=== PATIENT | male | born 1930 | race Caucasian/White ===

== ENCOUNTER 2018-09-03 20:17 | Emergency (ER) | payer MEDICARE, OTHER ==
--- NOTE | 2018-09-03 21:04 | EDM.PDOC ---
ED HPI GENERAL MEDICAL PROBLEM - General Chief Complaint: Cardiovascular Problem Stated Complaint: problems with heart rate Time Seen by Provider: 09/03/18 20:40 Source of Information: Reports: Patient, Family - History of Present Illness INITIAL COMMENTS - FREE TEXT/NARRATIVE: PT states that he was at home approximately 6:00 felt like his heart rate dropped low when he checked it it was down to 47 then a few minutes later it was up to 97 patient states that it felt like it fluttered for just a few minutes then went away patient denied any chest pain shortness breath lightheaded or dizziness says his heart rate normally runs in the 70s to 80 due to his pacemaker he denies any other signs of symptoms at this time but today after eating dinner approximately 11:30 or 12:00 stating that he overate a little too much port he did have some indigestion type pain that has lasted a few hours but is much better now Patient denies any chest pain shortness of breath lightheadedness or dizziness again says he feels fine and just wanted to get checked out he does have a history of GA back in the early 80s but had no intervention such as stents or surgery currently has a pacemaker which has never given him any trouble he has not had a stress test or a catheter since the first GA Onset: Today (No pain at this time) Worsens with: Denies: None Associated Symptoms: Reports: No Other Symptoms 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 (see below) (He took a couple of Tums for the heartburn which helped alleviate it ) - Related Data Allergies Allergy/AdvReac Type Severity Reaction Status Date / Time No Known Allergies Allergy Verified 09/03/18 20:21 Home Meds: Home Meds Atenolol 1 tab PO DAILY 09/03/18 [History] Insulin Degludec [Tresiba] 3 unit SQ BID 09/03/18 [History] Levothyroxine 125 mcg PO ACBREAKFAST 09/03/18 [History] Lisinopril 1 tab PO DAILY 09/03/18 [History] glipiZIDE [Glucotrol] 1 tab PO DAILY 09/03/18 [History] metFORMIN [Glucophage] 1,000 mg PO BIDMEALS 09/03/18 [History] Past Medical History Cardiovascular History: Reports: Hypertension, [place] Musculoskeletal History: Reports: Other (See Below) Other Musculoskeletal History: sciatica Endocrine/Metabolic History: Reports: Diabetes, Type II, Hypothyroidism - Past Surgical History Cardiovascular Surgical History: Reports: Pacer Social & Family History - Tobacco Use Smoking Status *Q: Former Smoker Used Tobacco, but Quit: Yes Month/Year Tobacco Last Used: 1983 ED ROS GENERAL - Review of Systems Review Of Systems: See Below Constitutional: Reports: No Symptoms HEENT: Reports: No Symptoms Respiratory: Reports: No Symptoms. Denies: Shortness of Breath, Wheezing, Pleuritic Chest Pain, Cough Cardiovascular: Reports: Palpitations. Denies: Chest Pain, Blood Pressure Problem, Dyspnea on Exertion, Edema, Lightheadedness Endocrine: Reports: No Symptoms GI/Abdominal: Reports: No Symptoms Musculoskeletal: Reports: No Symptoms Skin: Reports: No Symptoms Neurological: Reports: No Symptoms Hematologic/Lymphatic: Reports: No Symptoms Immunologic: Reports: No Symptoms ED EXAM, GENERAL - Physical Exam Exam: See Below Exam Limited By: No Limitations General Appearance: Alert, WD/WN, No Apparent Distress Ears: Normal External Exam Throat/Mouth: Normal Inspection, Normal Oropharynx, Normal Voice, No Airway Compromise Neck: Normal Inspection, Supple, Non-Tender, Full Range of Motion. No: Carotid Bruit Respiratory/Chest: No Respiratory Distress, Lungs Clear, Normal Breath Sounds, Chest Non-Tender Cardiovascular: Normal Peripheral Pulses, Regular Rate, Rhythm, No Edema, No Gallop, No JVD, No Murmur, No Rub. No: Bradycardia, Tachycardia GI/Abdominal: Normal Bowel Sounds, Soft, Non-Tender, No Organomegaly, No Distention Back Exam: Full Range of Motion Extremities: Normal Inspection, Normal Range of Motion, No Pedal Edema Neurological: Alert, Oriented, CN II-XII Intact, Normal Cognition, Normal Gait Psychiatric: Normal Affect, Normal Mood Skin Exam: Warm, Dry, Intact, Normal Color, No Rash EKG INTERPRETATION Rhythm: NSR (EKG has normal sinus rhythm I cannot appreciate any ST elevation or depression secondary to pacer spikes there were no reciprocal changes noted) Course - Vital Signs Last Recorded V/S: Last Vital Signs Temp 36.6 C 09/03/18 20:24 Pulse 74 09/04/18 00:08 Resp 16 09/04/18 00:08 BP 168/69 H 09/04/18 00:08 Pulse Ox 96 09/03/18 20:24 - Orders/Labs/Meds Orders: Active Orders 24 hr Category Date Time Status EKG 12 Lead [EKG Documentation Completion] [RC] STAT Care 09/03/18 20:58 Active Labs: Laboratory Tests 09/03/18 09/03/18 09/04/18 Range/Units 21:13 21:13 00:29 WBC 8.2 (4.0-10.0) x10^3/uL RBC 4.63 (4.5-6.0) x10^6/uL Hgb 13.8 L (14.0-18.0) g/dL Hct 41.7 (40.0-52.0) % MCV 90.1 (78.0-93.0) fL MCH 29.8 (26.0-32.0) pg MCHC 33.1 (32.0-36.0) g/dL RDW Coeff of Sergio 12.9 (10.0-15.0) % Plt Count 237 (130-400) x10^3/uL Sodium 144 (136-145) mmol/L Potassium 5.0 (3.5-5.1) mmol/L Chloride 107 (98-107) mmol/L Carbon Dioxide 24 (21-32) mmol/L Anion Gap 18.0 (10-20) mmol/L BUN 29 H (7-18) mg/dL Creatinine 1.7 H (0.70-1.30) mg/dL Est Cr Clr Drug Dosing 29.62 mL/min Estimated GFR (MDRD) 38 Glucose 197 H (74-106) mg/dL Calcium 9.2 (8.5-10.1) mg/dL Troponin I 0.018 < 0.017 (<=0.056) ng/mL - Re-Assessments/Exams Free Text/Narrative Re-Assessment/Exam: 09/03/18 21:05 EKG was faxed to [facility] for an over read but I could not appreciate any ST elevation or depression or reciprocal changes it was sent secondary to the acute GA reading at the top 09/03/18 21:[address] WEINSTEIN cardiology at [facility]. Agrees that there is no GA ongoing on the [id number] Departure - Departure Time of Disposition: 00:45 Disposition: Home, Self-Care 01 Condition: Good Clinical Impression: Palpitations, Dizziness Instructions: Palpitations, [id number] Referrals: Radha Flaherty, [Primary Care Provider] - Forms: ED Department Discharge - Problem List & Annotations (1) Palpitations SNOMED Code(s): 87791104 Code(s): R00.2 - PALPITATIONS Status: Acute - My Orders Last 24 Hours: My Active Orders 09/03/18 20:58 EKG 12 Lead [EKG Documentation Completion] [RC] STAT - Assessment/Plan Last 24 Hours: My Active Orders 09/03/18 20:58 EKG 12 Lead [EKG Documentation Completion] [RC] STAT Patient was rechecked multiple times pain no shortness breath no other palpitations says he feels fine discussed options with patient's own drawn a 3 hour troponin which she agrees with the patient does not and refuses to be admitted or placed in observation states he will follow with his primary care provider in the next 24 hours or if anything gets worse he will return to the emergency room
== END 2018-09-04 01:02 | disposition home or self-care (01) ==
LOC: VM.ED 20:17
DX: R00.2 Palpitations (principal); R42 Dizziness and giddiness; I10 Essential (primary) hypertension; E03.9 Hypothyroidism, unspecified; I25.2 Old myocardial infarction; E11.9 Type 2 diabetes mellitus without complications; Z79.4 Long term (current) use of insulin; Z87.891 Personal history of nicotine dependence; Z79.899 Other long term (current) drug therapy
CPT/HCPCS: 36415; 80048; 84484; 85027; 93005; 93010; 99284-GF; 99285-25

== ENCOUNTER 2019-06-30 05:33 | Emergency (ER) | payer MEDICARE, OTHER ==
[2019-06-30] MEDS ORDERED: Sodium Chloride 0.9% 10 ML Syringe FLUSH PRN (05:48)
--- NOTE | 2019-06-30 06:05 | EDM.PDOC ---
ED HPI GENERAL MEDICAL PROBLEM - General Chief Complaint: Neuro Symptoms/Deficits Stated Complaint: Numbness in Cheek and Left Hand Time Seen by Provider: 06/30/19 05:45 Source of Information: Reports: Patient History Limitations: Reports: No Limitations - History of Present Illness INITIAL COMMENTS - FREE TEXT/NARRATIVE: Pt. woke this AM around 4:30 with complaints of mild L sided facial numbness and mild L sided hand numbness. He states that he has never experienced symptoms like this in the past. He states that he felt completely normal when he went to bed around 10:30 last evening. He states that he did not wake up in the night and noticed the symptoms at 4:30 when he got up for the day. He denies any speech problems. No difficulty with ambulation. Denies any weakness/ numbness to his lower extremities or torso. Pt. denies any chest pain or shortness of breath. He has a history of CAD with an MO in 1987. He has a history of complete heart block and is paced. He has a history of diastolic HF, mitral stenosis, and pulmonary HTN. Risk factors for vascular disease include type 2 IDDM, dyslipidemia, and hypertension. Onset: Today Onset Date: 06/30/19 Location: Reports: Face, Upper Extremity, Left - Related Data Allergies Allergy/AdvReac Type Severity Reaction Status Date / Time No Known Allergies Allergy Verified 06/30/19 05:41 Home Meds: Home Meds Insulin Degludec [Tresiba] 3 unit SQ BID 09/03/18 [History] Levothyroxine 125 mcg PO ACBREAKFAST 09/03/18 [History] Lisinopril 1 tab PO DAILY 09/03/18 [History] atenoloL [Atenolol] 1 tab PO DAILY 09/03/18 [History] glipiZIDE [Glucotrol] 1 tab PO DAILY 09/03/18 [History] metFORMIN [Glucophage] 1,000 mg PO BIDMEALS 09/03/18 [History] Past Medical History Cardiovascular History: Reports: Hypertension, [place] Musculoskeletal History: Reports: Other (See Below) Other Musculoskeletal History: sciatica Endocrine/Metabolic History: Reports: Diabetes, Type II, Hypothyroidism - Past Surgical History Cardiovascular Surgical History: Reports: Pacer ED ROS GENERAL - Review of Systems Review Of Systems: See Below Constitutional: Reports: No Symptoms HEENT: Reports: No Symptoms Respiratory: Reports: No Symptoms Cardiovascular: Reports: No Symptoms Endocrine: Reports: No Symptoms GI/Abdominal: Reports: No Symptoms : Reports: No Symptoms Musculoskeletal: Reports: No Symptoms Skin: Reports: No Symptoms Neurological: Reports: Numbness (L hand and face), Paresthesia. Denies: Pre- Existing Deficit, Seizure, Syncope, Trouble Speaking, Difficulty Walking, Change in Speech, Gait Disturbance Psychiatric: Reports: No Symptoms Hematologic/Lymphatic: Reports: No Symptoms Immunologic: Reports: No Symptoms ED EXAM, GENERAL - Physical Exam Exam: See Below Exam Limited By: No Limitations General Appearance: Alert, WD/WN, No Apparent Distress Eye Exam: Bilateral Eye: EOMI, Normal Fundi, Normal Inspection, PERRL Nose: Normal Inspection, Normal Mucosa, No Blood Throat/Mouth: Normal Inspection, Normal Lips, Normal Teeth, Normal Gums Head: Atraumatic, Normocephalic Neck: Normal Inspection, Supple, Non-Tender, Full Range of Motion Respiratory/Chest: No Respiratory Distress, Lungs Clear, Normal Breath Sounds, No Accessory Muscle Use, Chest Non-Tender Cardiovascular: Normal Peripheral Pulses, Regular Rate, Rhythm, No Edema, No Gallop, No JVD, No Murmur, No Rub Peripheral Pulses: 4+: Radial (L), Radial (R) GI/Abdominal: Normal Bowel Sounds, Soft, Non-Tender, No Organomegaly, No Distention, No Mass (Male) Exam: Deferred Rectal (Males) Exam: Deferred Back Exam: Normal Inspection, Full Range of Motion Extremities: Normal Inspection, Normal Range of Motion, Non-Tender, No Pedal Edema, Normal Capillary Refill Neurological: Alert, Oriented, CN II-XII Intact, Normal Cognition, Normal Gait, Normal Reflexes, Sensory/Motor Deficit Psychiatric: Normal Affect, Normal Mood EKG INTERPRETATION Rhythm: NSR QRS: RBBB Course - Orders/Labs/Meds Orders: Active Orders 24 hr Category Date Time Status Blood Glucose Check, Bedside [RC] ONETIME Care 06/30/19 05:47 Active EKG Documentation Completion [RC] STAT Care 06/30/19 05:46 Active Head wo Cont [CT] Stat Exams 06/30/19 05:47 Taken CBC WITH AUTO DIFF [HEME] Stat Lab 06/30/19 06:12 Received COMPREHENSIVE METABOLIC PN,CMP [CHEM] Stat Lab 06/30/19 06:12 Received INR,PT,PROTHROMBIN TIME [COAG] Stat Lab 06/30/19 06:12 Received TSH ULTRASENSITIVE [CHEM] Stat Lab 06/30/19 06:12 Received Sodium Chloride 0.9% [Saline Flush] Med 06/30/19 05:48 Active 10 ml FLUSH ASDIRECTED PRN Peripheral IV Insertion Adult [OM.PC] Routine Oth 06/30/19 05:48 Ordered Medication Orders Sodium Chloride (Saline Flush) 10 ml FLUSH ASDIRECTED PRN PRN Reason: Keep Vein Open Labs: Laboratory Tests 06/30/19 06/30/19 Range/Units 05:49 06:15 POC Glucose 147 H (74-106) mg/dL POC Troponin I 0.00 (0.00-0.08) ng/mL Meds: Medications Generic Name Dose Route Start Last Admin Trade Name Freq PRN Reason Stop Dose Admin Sodium Chloride 10 ml 06/30/19 05:48 Saline Flush FLUSH ASDIRECTED PRN Keep Vein Open - Radiology Interpretation Free Text/Narrative:: CT brain negative for hemorrhage/other acute findings. Diffuse volume loss and small vessel disease noted. Departure - Departure Time of Disposition: 06:38 Disposition: DC/Tfer to Acute Hospital 02 Clinical Impression: TIA (transient ischemic attack) - Discharge Information Referrals: Radha Flaherty DO [Primary Care Provider] - Forms: ED Department Discharge Sepsis Event Note - Focused Exam Date Exam was Performed: 06/30/19 Time Exam was Performed: 06:35 - Problem List Review Problem List Initiated/Reviewed/Updated: Yes - My Orders Last 24 Hours: My Active Orders 06/30/19 05:46 EKG Documentation Completion [RC] STAT 06/30/19 05:47 Blood Glucose Check, Bedside [RC] ONETIME Head wo Cont [CT] Stat 06/30/19 05:48 Sodium Chloride 0.9% [Saline Flush] 10 ml FLUSH ASDIRECTED PRN Peripheral IV Insertion Adult [OM.PC] Routine 06/30/19 06:12 CBC WITH AUTO DIFF [HEME] Stat COMPREHENSIVE METABOLIC PN,CMP [CHEM] Stat INR,PT,PROTHROMBIN TIME [COAG] Stat TSH ULTRASENSITIVE [CHEM] Stat - Assessment/Plan Last 24 Hours: My Active Orders 06/30/19 05:46 EKG Documentation Completion [RC] STAT 06/30/19 05:47 Blood Glucose Check, Bedside [RC] ONETIME Head wo Cont [CT] Stat 06/30/19 05:48 Sodium Chloride 0.9% [Saline Flush] 10 ml FLUSH ASDIRECTED PRN Peripheral IV Insertion Adult [OM.PC] Routine 06/30/19 06:12 CBC WITH AUTO DIFF [HEME] Stat COMPREHENSIVE METABOLIC PN,CMP [CHEM] Stat INR,PT,PROTHROMBIN TIME [COAG] Stat TSH ULTRASENSITIVE [CHEM] Stat Plan: Stroke code was called. NIH stroke scale performed. Score was 1 due to lack of sensation. There was no pronator drift, facial droop, speech abnormality. CT of brain was negative. Findings discussed with Dr. Solis, neurologist. Pt. will be transferred to [facility] for stroke workup. All questions were answered.
[2019-06-30 06:45] LABS: ANION GAP 14.3 mmol/L (10-20); CHLORIDE,CL 108 mmol/L (98-107); SODIUM,NA 144 mmol/L (136-145)
--- NOTE | 2019-06-30 08:04 | CT ---
[id number] CT/CT Head WO IV EXAM: NONCONTRAST HEAD CT INDICATION: LEFT SIDED FACIAL NUMBNESS. COMPARISON: None. DISCUSSION: A 7 mm calcification along the right sphenoid bone in the right prepontine cistern likely represents a meningioma. Mild to moderate generalized atrophy and moderate chronic small vessel ischemic changes. 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 There is near complete opacification of the left sphenoid sinus which demonstrates osseous wall hypertrophy and hypodensity secretions. Findings are compatible with chronic sinusitis. IMPRESSION: 1. No acute intracranial findings. 2. Moderate chronic small vessel ischemic changes and mild to moderate generalized atrophy. Pablo Sun MD 06/30/19 0803 Thank you for allowing us to participate in the care of your patient.
== END 2019-06-30 07:11 | disposition short-term general hospital (02) ==
LOC: VM.ED 05:33
DX: G45.9 Transient cerebral ischemic attack, unspecified (principal); I10 Essential (primary) hypertension; E11.9 Type 2 diabetes mellitus without complications; E03.9 Hypothyroidism, unspecified; I25.10 Atherosclerotic heart disease of native coronary artery without angina pectoris; I25.2 Old myocardial infarction; Z79.4 Long term (current) use of insulin; Z79.899 Other long term (current) drug therapy
CPT/HCPCS: 36415; 70450; 80053; 82962; 84443; 84484; 85025; 85610; 93005; 93010; 99284-GF; 99285-25